=== PATIENT | female | born 1995 | race American Indian/Alaskan Native ===

== ENCOUNTER 2019-02-03 18:56 | Emergency (ER) | payer SELFPAY ==
--- NOTE | 2019-02-03 19:03 | Emergency Department Report ---
Chief Complaint: Urogenital-Female Stated Complaint: VAGINAL DISCHARGE Time Seen by Provider: 02/03/19 19:02 - HPI History of Present Illness: VAG DISCHARGE PMH NONE LMP LAST WEEK G2 NOT SEXUALLY ACTIVE RX NONE CIG/ETOH/DRUGS MSE COMPLETED MSE screening note: Focused history and physical exam performed. Due to findings the following was ordered: ED Disposition for MSE Condition: Stable
[2019-02-03 19:14] VITALS: BP 116/75
[2019-02-03 20:29] LABS: Bilirubin,Urine NEG (Negative); Blood,Urine NEG (Negative); Calcium Oxalate Crystals,Urine 1+; Color,Urine Yellow (Yellow); Mucus,Urine 3+ /HPF; Protein,Urine <15 mg/dL mg/dL (Negative)
[2019-02-03 20:34] LABS: HCG Qualitative,Urine Negative (Negative)
--- NOTE | 2019-02-03 22:34 | Emergency Department Report ---
ED Female HPI - General Chief complaint: Urogenital-Female Stated complaint: VAGINAL DISCHARGE Time Seen by Provider: 02/03/19 19:02 Source: patient Mode of arrival: Ambulatory Limitations: No Limitations - History of Present Illness Initial comments: Pt is a 23 yo female who presents to the ED with c/o vaginal irritation that began 2 days ago. She has associated clear vaginal discharge. The patient denies any dysuria, urinary frequency, lesions, blisters, fever, or N/V. Pt states she has not been sexually active since October. She denies any PMHx, denies any medication allergies. - Related Data Previous Rx's Medication Instructions Recorded Last Taken Type metroNIDAZOLE [Metronidazole] 500 mg PO BID 7 Days #14 tablet 02/03/19 Unknown Rx Allergies Allergy/AdvReac Type Severity Reaction Status Date / Time No Known Allergies Allergy Verified 02/03/19 19:13 ED Review of Systems ROS: Stated complaint: VAGINAL DISCHARGE Other details as noted in HPI Comment: All other systems reviewed and negative ED Past Medical Hx - Past Medical History Previous Medical History?: No - Surgical History Past Surgical History?: No - Social History Smoking Status: Never Smoker Substance Use Type: None - Medications Home Medications: Home Medications Medication Instructions Recorded Confirmed Last Taken Type metroNIDAZOLE [Metronidazole] 500 mg PO BID 7 Days #14 tablet 02/03/19 Unknown Rx ED Physical Exam - General Limitations: No Limitations General appearance: alert, in no apparent distress - Head Head exam: Present: atraumatic, normocephalic - Eye Eye exam: Present: normal appearance - ENT ENT exam: Present: mucous membranes moist - Respiratory Respiratory exam: Present: normal lung sounds bilaterally. Absent: respiratory distress, wheezes, rales, rhonchi, stridor, chest wall tenderness, accessory muscle use, decreased breath sounds, prolonged expiratory - Cardiovascular Cardiovascular Exam: Present: regular rate, normal rhythm, normal heart sounds. Absent: systolic murmur, diastolic murmur, rubs, gallop - GI/Abdominal GI/Abdominal exam: Present: soft, normal bowel sounds. Absent: distended, tenderness, guarding, rebound, rigid - External exam: Present: normal external exam, other (whitney, tech present during examination ). Absent: erythema, swelling, lesions, lacerations, ecchymosis, bleeding Speculum exam: Present: vaginal discharge, cervical discharge (small amount white/nicholas). Absent: vaginal bleeding, foreign body Bi-manual exam: Absent: cervical motion tendernes, adnexal tenderness, adnexal mass, uterine enlargement, uterine tenderness - Back Exam Back exam: Absent: CVA tenderness (R), CVA tenderness (L) - Neurological Exam Neurological exam: Present: alert, oriented X3 - Psychiatric Psychiatric exam: Present: normal affect, normal mood - Skin Skin exam: Present: warm, dry, intact ED Course Vital Signs 02/03/19 02/03/19 19:07 23:50 Temperature 97.6 F Pulse Rate 85 89 Respiratory 16 17 Rate Blood Pressure 116/75 O2 Sat by Pulse 100 99 Oximetry ED Medical Decision Making - Lab Data Lab Results 02/03/19 Range/Units 19:32 Urine Color Yellow (Yellow) Urine Turbidity Clear (Clear) Urine pH 5.0 (5.0-7.0) Ur Specific [place] 1.039 H (1.003-1.030) Urine Protein <15 mg/dl (Negative) mg/dL Urine Glucose (UA) Neg (Negative) mg/dL Urine Ketones 80 (Negative) mg/dL Urine Blood Neg (Negative) Urine Nitrite Neg (Negative) Urine Bilirubin Neg (Negative) Urine Urobilinogen 4.0 (<2.0) mg/dL Ur Leukocyte Esterase Neg (Negative) Urine WBC (Auto) 1.0 (0.0-6.0) /HPF Urine RBC (Auto) 2.0 (0.0-6.0) /HPF U Epithel Cells (Auto) 1.0 (0-13.0) /HPF Calcium Oxalate Crystal 1+ Urine Mucus 3+ /HPF Urine HCG, Qual Negative (Negative) Vital Signs 02/03/19 02/03/19 19:07 23:50 Temperature 97.6 F Pulse Rate 85 89 Respiratory 16 17 Rate Blood Pressure 116/75 O2 Sat by Pulse 100 99 Oximetry - Medical Decision Making Pt is a 23 yo female who presents to the ED with c/o vaginal irritation that began 2 days ago. She has associated clear vaginal discharge. The patient denies any dysuria, urinary frequency, lesions, blisters, fever, or N/V. Pt states she has not been sexually active since October. She denies any PMHx, denies any medication allergies. UA is normal. VSS. wet prep shows bacterial vaginosis. pt swabbed for G/C and treated with ceftriaxone and azithromycin in the ED. Pt given prescription for flagyl. Advised to take medication as prescribed and do not drink ETOH while taking. Advised pt no sexual intercourse for 10 days. Discussed to have any partners tested and treated. Discussed with pt if concerned for any other STDs then to be seen by groundskeeper porter or health department. Advised pt to check with medical records in 1 week for results of G/C. Follow up with PCP and groundskeeper porter in the next 2-3 days. Return to the ED for any new or worsening symptoms. - Differential Diagnosis UTI, STD, yeast, BV Critical care attestation.: If time is entered above; I have spent that time in minutes in the direct care of this critically ill patient, excluding procedure time. ED Disposition Clinical Impression: BV (bacterial vaginosis) Disposition: TO HOME OR SELFCARE Is pt being admited?: No Does the pt Need Aspirin: No Condition: Stable Instructions: Bacterial Vaginosis (ED) Additional Instructions: Please take all medication as prescribed. Do not drink while taking medication. Follow up with primary care and HOTHOUSE WORKER in the next 2-3 days. May check back with medical records in a week for results of other swab. Have any other partners tested and treated if necessary. If concerned about other STDs please be seen by health department or HOTHOUSE WORKER. Return to the emergency room for any new or worsening symptoms. Prescriptions: metroNIDAZOLE [Metronidazole] 500 mg PO BID 7 Days #14 tablet [facility] [place] [facility] [Primary Care Provider] - 2-3 Days [facility] [Provider Group] - 2-3 Days Forms: STI Treatment and Prevention Time of Disposition: 23:35 Print Language: TANZANIAN
[2019-02-03] MEDS ORDERED: ROCEPHIN IM ONE (22:54)
[2019-02-03] MEDS ORDERED: XYLOCAINE 1% MPF 5 mL INFILTRATI ONE (22:54)
[2019-02-03] MEDS ORDERED: ZITHROMAX PO ONE (22:54)
== END 2019-02-03 23:50 | disposition home or self-care (01) ==
LOC: ED 18:56
DX: N76.0 Acute vaginitis (principal); B96.89 Other specified bacterial agents as the cause of diseases classified elsewhere
CPT/HCPCS: 81001; 81025; 87210; 96372; 99284; J0696